=== PATIENT | male | born 1970 | race Caucasian/White ===

== ENCOUNTER 2017-12-13 18:45 | Emergency (ER) | payer OTHER ==
[~2017-12-13] VITALS: Ht 170.2 cm; Wt 101.8 kg
[~2017-12-13 18:45] MED LIST: CIPRO PO
[2017-12-13 19:17] VITALS: BP 134/98; Ht 170.2 cm; Wt 101.8 kg
== END 2017-12-13 20:24 | disposition home or self-care (01) ==
LOC: ED 18:45
DX: L03.012 Cellulitis of left finger (principal)
CPT/HCPCS: A4570; J0696